=== PATIENT | male | born 1960 | race Caucasian/White ===

== ENCOUNTER 2022-10-27 06:40 | Day surgery (SDC) | payer BC, OTHER ==
[~2022-10-27 06:40] MED LIST: Lactated Ringers 1,000 ML IV SCH; Lidocaine 1%/Sod Bicarbonate in NS 8.4% 1 ML Syringe IDERM PRN; Sodium Chloride 0.9% 10 ML Syringe FLUSH PRN; Sodium Chloride 0.9% 10 ML Syringe FLUSH SCH
[2022-10-27] MEDS ORDERED: Lidocaine 1% with EPINEPHrine 1:100,000 20 ML MDV ONE (07:12)
[2022-10-27] MEDS ORDERED: Bupivacaine 0.5%/EPINEPHrine 1:200,000 50 ML MDV ONE (07:12)
[2022-10-27] MEDS ORDERED: fentaNYL 100 MCG/2 ML SDV IVPUSH PRN ×2 (07:19→08:38)
[2022-10-27] MEDS ORDERED: Ondansetron 4 MG/2 ML SDV IVPUSH PRN ×2 (07:19→08:38)
[2022-10-27] MEDS ORDERED: HYDROmorphone 0.5 MG/0.5 ML Syringe IVPUSH PRN ×2 (07:19→08:38)
[2022-10-27] MEDS ORDERED: Rocuronium 50 MG/5 ML Vial ONE ×2 (07:23→09:36)
[2022-10-27] MEDS ORDERED: Lidocaine 1% 5 ML VIAL ONE (07:23)
[2022-10-27] MEDS ORDERED: Propofol 200 MG/20 ML SDV ONE (07:23)
[2022-10-27] MEDS ORDERED: Midazolam 1 MG/ML 2 ML SDV ONE (07:23)
[2022-10-27] MEDS ORDERED: Ondansetron 4 MG/2 ML SDV ONE (07:23)
[2022-10-27] MEDS ORDERED: fentaNYL 100 MCG/2 ML SDV ONE ×2 (07:24→09:28)
[2022-10-27] MEDS ORDERED: Dexamethasone 4 MG/ML 5 ML MDV ONE (07:24)
[2022-10-27] MEDS ORDERED: ceFAZolin 2 GM Vial ONE (07:29)
[2022-10-27] MEDS ORDERED: ePHEDrine 50 MG/ML SDV ONE (08:31)
[2022-10-27] MEDS ORDERED: Lactated Ringers 1,000 ML ONE (08:39)
[2022-10-27] MEDS ORDERED: Ketamine 500 mg/10 ML MDV ONE (08:49)
[2022-10-27] MEDS ORDERED: HYDROmorphone 0.5 MG/0.5 ML Syringe ONE (09:08)
[2022-10-27] MEDS ORDERED: Neostigmine Methylsulfate 10 MG/10 ML MDV ONE (09:52)
[2022-10-27] MEDS ORDERED: Ketorolac 15 MG/ML SDV ONE (10:00)
[2022-10-27] MEDS ORDERED: Acetaminophen/oxyCODONE 325-5 MG Tab PO ONE (12:08)
== END 2022-10-27 13:45 | disposition home or self-care (01) ==
LOC: JD.SDS 06:40
PROVIDERS: ATTEND Surgery
DX: K40.20 Bilateral inguinal hernia, without obstruction or gangrene, not specified as recurrent (principal); G47.30 Sleep apnea, unspecified; Z88.1 Allergy status to other antibiotic agents; Z91.040 Latex allergy status; Z98.890 Other specified postprocedural states
CPT/HCPCS: A9270-GY; C1727; C1781; J0690; J1100; J1170; J1885; J2250; J2405; J2704; J2710; J3010; J3490; J7120

== ENCOUNTER 2025-07-18 13:56 | Day surgery (SDC) | payer MEDICARE, OTHER ==
[~2025-07-18 13:56] MED LIST changes: -Lactated Ringers 1,000 ML IV SCH; -Lidocaine 1%/Sod Bicarbonate in NS 8.4% 1 ML Syringe IDERM PRN; +Pilocarpine 4% Ophth Soln 15 ML Bot EYERT SCH; -Sodium Chloride 0.9% 10 ML Syringe FLUSH PRN; -Sodium Chloride 0.9% 10 ML Syringe FLUSH SCH
[2025-07-18] MEDS: Polymyxin B/Trimethoprim 10 ML Bottle EYERT SCH (14:12)
[2025-07-18] MEDS: Tropicamide 1% Ophth Soln 3 ML Bottle EYERT SCH (14:22)
[2025-07-18] MEDS: Tetracaine HCl/PF 0.5% 4 ML Bottle EYEBOTH SCH (15:12)
[2025-07-18] MEDS: Lidocaine 1% PF 2 ML SDV INJECT SCH (15:32)
[2025-07-18] MEDS: Cefuroxime 10 MG/ML SYRINGE EYERT SCH (15:44)
== END 2025-07-18 15:56 | disposition home or self-care (01) ==
LOC: JD.SDS 13:56
PROVIDERS: ATTEND Ophthalmology
DX: H25.813 Combined forms of age-related cataract, bilateral (principal); H40.003 Preglaucoma, unspecified, bilateral; H16.103 Unspecified superficial keratitis, bilateral; H16.223 Keratoconjunctivitis sicca, not specified as Sjogren's, bilateral; H02.834 Dermatochalasis of left upper eyelid; H02.831 Dermatochalasis of right upper eyelid; Z88.5 Allergy status to narcotic agent
CPT/HCPCS: A9270-GY; J3490